=== PATIENT | female | born 1975 | race Caucasian/White ===

== ENCOUNTER 2023-06-12 16:39 | Emergency (ER) | payer OTHER ==
[~2023-06-12] VITALS: Ht 160 cm; Wt 71.7 kg
[2023-06-12 16:52] VITALS: BP_SYST 149; PULSE 86; RESP 18; TEMP 97.4; O2SAT 98
--- NOTE | 2023-06-12 16:56 | NUR ---
Placed in room 05 . Placed on oyster sorter, blood pressure machine and pulse oximeter. To gown for exam. Side rails up. Report given to SHIV Latham. notified of MSE does not want to call code stroke at this time.
--- NOTE | 2023-06-12 17:02 | NUR ---
PT BIB AWAKE AND ALERT AOX4, NO SOB OR DISTRESS. PT DEINES PAIN. PT STATES HEADACHE, GEN WEAKNESS X7 DAYS, SPEECH PROBLEMS FOR X 3 MONTH. PT STATES SOMETIMES ITS HARD TO MAKE OUT WORDS. PT STATES HE ENTIRE BODY FEELS TINGLY TODAY. PT DENIES HX, PT HAS SINUS SX.
--- NOTE | 2023-06-12 17:05 | NUR ---
MD DR ENCINAS AT BEDSIDE
[2023-06-12 17:44] LABS: BASOPHILS # (AUTO) 0.1 K/uL (0.0-0.2); EOSINOPHILS # (AUTO) 0.3 K/uL (0.0-0.4); EOSINOPHILS % (AUTO) 4.3 % (0.0-4.0); HEMOGLOBIN 11.8 g/dL (12.0-16.0); LYMPHOCYTES # (AUTO) 2.3 K/uL (1.0-5.5); LYMPHOCYTES % (AUTO) 35.1 % (20.5-51.5); MEAN CORPUSCULAR HEMOGLOBIN 32 pg (27-31); MEAN CORPUSCULAR HGB CONC 34 % (32-36); MEAN CORPUSCULAR VOLUME 93 fL (79.0-98.0); MONOCYTES # (AUTO) 0.4 K/uL (0.0-1.0); MONOCYTES % (AUTO) 5.6 % (1.7-9.3); NEUTROPHILS # (AUTO) 3.5 K/uL (1.8-7.7); PLATELET COUNT (AUTO) 202 K/uL (130-430); RED BLOOD CELL COUNT(AUTO) 3.75 MIL/uL (4.2-6.2); RED CELL DISTRIBUTION WIDTH 13.2 % (9.0-15.0); WHITE BLOOD COUNT (AUTO) 6.5 K/uL (4.8-10.8)
[2023-06-12 17:46] LABS: BARBITURATE, URINE NEGATIVE (NEG <=200); BENZODIAZEPINE, URINE NEGATIVE (NEG <=150); CANNABINOID, URINE NEGATIVE (NEG <=50); COCAINE, URINE NEGATIVE (NEG <=150); METHAMPHETAMINES SCREEN,URINE NEGATIVE (NEG <=500); OPIATE, URINE NEGATIVE (NEG <=100); PHENCYCLIDINE SCREEN,URINE NEGATIVE (NEG <=25); UR TRICYCLIC ANTIDEPRESSANTS NEGATIVE (NEG <=300); URINE AMPHETAMINE NEGATIVE (NEG <=500); URINE METHADONE NEGATIVE (NEG <=200); URINE OXYCODONE SCREEN NEGATIVE (NEG <=100); URINE PROPOXYPHENE SCREEN NEGATIVE (NEG <=300)
[2023-06-12 18:09] LABS: ALANINE AMINOTRANSFERASE 30 U/L (12-78); ALBUMIN 3.6 g/dL (3.4-4.8); ANION GAP 7 (5-15); ASPARTATE AMINOTRANSFERASE 61 U/L (10-37); CALCIUM 8.5 mg/dL (8.4-11.0); CHLORIDE 105 mmol/L (98-107); CREATININE 0.79 mg/dL (0.55-1.30); GFR AFRICAN AMERICAN 99 mL/min (>90); GLUCOSE 109 mg/dL (74-106); TOTAL BILIRUBIN 0.2 mg/dL (0.0-1.0); UREA NITROGEN, BLOOD 12 mg/dL (8-21)
--- NOTE | 2023-06-12 19:04 | NUR ---
TELE CONSULT "MARCIA" AT BEDSIDE. CHANTAL CALLED AND WAITNG FOR TELE CONFRENCE.
--- NOTE | 2023-06-12 19:23 | NUR ---
REPORT GIVEN TO MANUELITO. PT STABLE. VSS
[2023-06-12] MEDS ORDERED: KETOROLAC TROMETHAMINE 15 MG VIAL IVP ONE (19:45)
[2023-06-12] MEDS ORDERED: iohexoL 350 mgI/mL, 100 ML INFUS..BTL IV ONE (19:49)
--- NOTE | 2023-06-12 20:00 | NUR ---
patient off unit to ct scan.
[2023-06-12 20:10] LABS: BILIRUBIN,URINE NEGATIVE (NEGATIVE); COLOR,URINE YELLOW (YELLOW); GLUCOSE,URINE NEGATIVE (NEGATIVE); KETONES,URINE NEGATIVE (NEGATIVE); LEUKOCYTE ESTERASE ,URINE 3+ (NEGATIVE); NITRITE, URINE NEGATIVE (NEGATIVE); PROTEIN URINE NEGATIVE (NEGATIVE); UROBILINOGEN,URINE 0.2 (0.2-1.0)
[2023-06-12 20:11] LABS: BLOOD, URINE TRACE (NEGATIVE); CLARITY/URINE SLIGHTLY HAZY (CLEAR)
[2023-06-12 20:49] LABS: BACTERIA,URINE MODERATE /HPF (None Seen)
[2023-06-12 21:46] VITALS: BP_SYST 126; PULSE 68; RESP 17; TEMP 97.4; O2SAT 100
--- NOTE | 2023-06-12 21:46 | NUR ---
Patient given written and verbal discharge instructions and verbalizes understanding. ER MD discussed with patient the results and treatment provided. Patient in stable condition. ID arm band removed. IV catheter removed intact and dressing applied, no active bleeding. Patient educated on pain management and to follow up with PMD. Pain Scale 0/10 Opportunity for questions provided and answered.
[2023-06-12] MEDS ORDERED: CEPH-548 PO (22:50)
== END 2023-06-12 21:46 | disposition home or self-care (01) ==
LOC: SED 16:39
DX: N39.0 Urinary tract infection, site not specified (principal); R29.818 Other symptoms and signs involving the nervous system; R47.1 Dysarthria and anarthria; R20.2 Paresthesia of skin; Z79.899 Other long term (current) drug therapy
CPT/HCPCS: 99285; 70496; 96374; 71045; 80307; 80053; 85025; 87086; 84484; 36415; 93005; 70498; 81025; 81000; 70450; 76376; Q9967; J1885